=== PATIENT | male | born 1990 | race Two or more races ===

== ENCOUNTER 2016-08-21 17:55 | Emergency (ER) | payer OTHER ==
[~2016-08-21] VITALS: Ht 190.5 cm; Wt 97.5 kg
[2016-08-21] MEDS ORDERED: SODIUM CHLORIDE 0.9% 1,000 ML IV ONE (18:55)
[2016-08-21] MEDS ORDERED: diphenhdrAMINE HCL 50 MG/1 ML VL IV ONE (19:00)
[2016-08-21] MEDS ORDERED: methylPREDNISolone SOD SUCC 125 MG/2 ML VL IV ONE (19:00)
[2016-08-21 19:19] LABS: Basophils # (auto) 0 uL; Basophils % (auto) 0.5 % (0.0-2.0); Eosinophils # (auto) 0.2 uL; Eosinophils % (auto) 2.6 % (0.0-7.0); Hematocrit 49.5 % (41.0-53.0); Hemoglobin 16.6 g/dL (13.5-17.5); Lymphocytes # (auto) 2.9 uL; Mean Corpuscular Hemoglobin 30.8 pg (28.0-32.0); Mean Corpuscular Hgb Conc. 33.6 g/dL (32.0-36.0); Mean Corpuscular Volume 91.9 fL (80.0-100.0); Mean Platelet Volume 9.6 fL (7.4-10.4); Monocytes # (auto) 0.5 uL; Monocytes % (auto) 6.5 % (0.0-12.0); Neutrophils # (auto) 4.5 uL; Neutrophils % (auto) 55.4 % (37.0-80.0); Platelet Count (auto) 195 10^3/uL (140-450); Red Cell Distribution Width 13.3 % (11.6-16.0); White Blood Cell 8.2 10^3/uL (4.4-10.8)
[2016-08-21 19:30] LABS: BUN/Creatinine Ratio 15.7; Calcium 8.9 mg/dL (8.5-10.1); Potassium 3.9 mmol/L (3.5-5.1)
[2016-08-21 19:42] VITALS: BP 118/82
== END 2016-08-21 20:55 | disposition home or self-care (01) ==
LOC: ER 17:57
DX: T78.40XA Allergy, unspecified, initial encounter (principal); R22.0 Localized swelling, mass and lump, head
CPT/HCPCS: 36415; 80048; 85025; 94761; 96361; 96374; 96375; 99285; J1200; J2930; J7030